=== PATIENT | male | born 1960 | race Caucasian/White ===

== ENCOUNTER 2020-09-27 21:34 | Inpatient (IN) | payer OTHER ==
[~2020-09-27] VITALS: Ht 162.6 cm; Wt 106.6 kg
[2020-09-27] MEDS ORDERED: AZITHROMYCIN 500MG/NS 250 ML 250 ML IV ONE (21:45)
[2020-09-27] MEDS ORDERED: DEXAMETHASONE SOD PHOS 10 MG/1 ML VIAL IV ONE (21:45)
[2020-09-27] MEDS ORDERED: CEFTRIAXONE SOD 1 GM/50 ML BAG IV ONE (21:45)
[2020-09-27] MEDS ORDERED: SODIUM CHLORIDE 0.9% IV STA (21:52)
[2020-09-27] MEDS ORDERED: CEFTRIAXONE SOD IV STA (21:52)
[2020-09-27 22:31] LABS: EOSINOPHILS % 0.3 % (0.0-6.0); HEMATOCRIT 40.1 % (38.2-49.6); HEMOGLOBIN 13.9 g/dL (14.0-18.0); LYMPHOCYTES # (AUTO) 0.5 (1.0-3.2); LYMPHOCYTES % 6.5 % (18.0-39.1); MEAN CORPUSCULAR HEMOGLOBIN 29.6 pg (28-32); MEAN CORPUSCULAR HGB CONC 34.7 g/dL (31-35); MEAN CORPUSCULAR VOLUME 85.3 fL (81-99); MONOCYTES # (AUTO) 0.6 (0.2-0.8); MONOCYTES % 7.7 % (4.4-11.3); NEUTROPHILS # (AUTO) 6.1 (2.1-6.9); NEUTROPHILS % 84.8 % (38.7-80.0); PLATELET COUNT 242 x10e3/uL (140-360); RED CELL DISTRIBUTION WIDTH 12.1 % (11.7-14.4)
[2020-09-27 22:43] LABS: ALANINE AMINOTRANSFERASE 36 IU/L (0-55); ALBUMIN 3.2 g/dL (3.5-5.0); ALBUMIN/GLOBULIN RATIO 0.8 (0.8-2.0); ANION GAP 16.5 mmol/L (8-16); BLOOD UREA NITROGEN 16 mg/dL (7-26); BUN/CREATININE RATIO 21 (6-25); CALCIUM 8.5 mg/dL (8.4-10.2); CARBON DIOXIDE 23 mmol/L (22-29); CHLORIDE 100 mmol/L (98-107); CREATINE KINASE 404 IU/L (30-200); CREATININE, SERUM 0.75 mg/dL (0.72-1.25); EST GLOMERULAR FILTRATION RATE > 60 ML/MIN (60-); GLUCOSE 140 mg/dL (74-118); POTASSIUM 3.5 mmol/L (3.5-5.1); SODIUM 136 mmol/L (136-145)
[2020-09-27 23:04] LABS: ALKALINE PHOSPHATASE 60 IU/L (40-150)
[2020-09-28] VITALS (9 sets, daily range): BP systolic 109–120; BP diastolic 58–92
[2020-09-28] MEDS ORDERED: SODIUM CHLORIDE FLUSH 10 ML SYR INJ PRN (03:00)
[2020-09-28] MEDS ORDERED: ONDANSETRON HCL INJ 2MG/ML 2ML 2 MG/ML VIAL IV PRN (03:00)
[2020-09-28] MEDS ORDERED: ACETAMINOPHEN 325 MG TAB PO PRN (03:00)
[2020-09-28] MEDS ORDERED: ZOLPIDEM TARTRATE 5 MG TAB PO PRN (08:00)
[2020-09-28 08:34] LABS: HEMATOCRIT 40.5 % (38.2-49.6); HEMOGLOBIN 14.2 g/dL (14.0-18.0); LYMPHOCYTES # (AUTO) 0.4 (1.0-3.2); LYMPHOCYTES % 9.4 % (18.0-39.1); MEAN CORPUSCULAR HGB CONC 35.1 g/dL (31-35); MEAN CORPUSCULAR VOLUME 85.6 fL (81-99); MONOCYTES # (AUTO) 0.1 (0.2-0.8); MONOCYTES % 3.5 % (4.4-11.3); NEUTROPHILS # (AUTO) 3.2 (2.1-6.9); NEUTROPHILS % 86.3 % (38.7-80.0); PLATELET COUNT 224 x10e3/uL (140-360); RED BLOOD COUNT 4.73 x10e6/uL (4.3-5.7); RED CELL DISTRIBUTION WIDTH 11.9 % (11.7-14.4)
[2020-09-28] MEDS ORDERED: SODIUM CHLORIDE 0.9% 250ML 250 ML ONE (08:34)
[2020-09-28 08:58] LABS: CREATINE KINASE MB 1.3 ng/mL (0-5.0)
[2020-09-28] MEDS: AZITHROMYCIN 500MG/NS 250 ML 250 ML IV SCH (09:06)
[2020-09-28] MEDS: ASCORBIC ACID 500 MG TAB PO SCH ×2 (09:06→16:21)
[2020-09-28] MEDS: GUAIFENESIN/CODEINE 10 ML CUP PO PRN ×3 (09:06→21:37)
[2020-09-28] MEDS: ENOXAPARIN SOD INJ 60 MG/0.6 ML SYR SC SCH ×2 (09:06→16:21)
[2020-09-28 09:12] LABS: ALANINE AMINOTRANSFERASE 35 IU/L (0-55); ALBUMIN 2.9 g/dL (3.5-5.0); ALBUMIN/GLOBULIN RATIO 0.7 (0.8-2.0); ALKALINE PHOSPHATASE 58 IU/L (40-150); BLOOD UREA NITROGEN 18 mg/dL (7-26); BUN/CREATININE RATIO 23 (6-25); CALCIUM 8.3 mg/dL (8.4-10.2); CARBON DIOXIDE 20 mmol/L (22-29); CHLORIDE 100 mmol/L (98-107); CREATININE, SERUM 0.78 mg/dL (0.72-1.25); EST GLOMERULAR FILTRATION RATE > 60 ML/MIN (60-); GLUCOSE 308 mg/dL (74-118); SODIUM 134 mmol/L (136-145)
[2020-09-28] MEDS: CEFTRIAXONE SOD 2 GM in SODIUM CHLORIDE 0.9% 100 ML IV SCH (11:25)
[2020-09-28] MEDS ORDERED: REMDESIVIR 200MG/NS 100ML 200 MG in SODIUM CHLORIDE 0.9% 100 ML 100 ML IV ONE (14:00)
[2020-09-28] MEDS ORDERED: ALBUTEROL SULFATE HFA 8GM INHALATION AEROSOL INH PRN (15:15)
[2020-09-28] MEDS: DEXAMETHASONE SOD PHOS 10 MG/1 ML VIAL IV SCH (16:21)
[2020-09-28 18:21] LABS: CREATINE KINASE MB 1.6 ng/mL (0-5.0)
[2020-09-28] MEDS: FENOFIBRATE 145 MG TAB PO SCH (21:37)
[2020-09-29] VITALS (8 sets, daily range): BP systolic 105–131; BP diastolic 58–75
[2020-09-29] MEDS: GUAIFENESIN/CODEINE 10 ML CUP PO PRN ×5 (01:54→23:45)
[2020-09-29 05:04] LABS: BASOPHILS % 0.1 % (0.0-1.0); HEMATOCRIT 38.9 % (38.2-49.6); HEMOGLOBIN 13.4 g/dL (14.0-18.0); LYMPHOCYTES # (AUTO) 0.5 (1.0-3.2); LYMPHOCYTES % 6.9 % (18.0-39.1); MEAN CORPUSCULAR HEMOGLOBIN 29.5 pg (28-32); MEAN CORPUSCULAR HGB CONC 34.4 g/dL (31-35); MEAN CORPUSCULAR VOLUME 85.7 fL (81-99); MONOCYTES # (AUTO) 0.6 (0.2-0.8); NEUTROPHILS # (AUTO) 5.9 (2.1-6.9); NEUTROPHILS % 84.1 % (38.7-80.0); PLATELET COUNT 274 x10e3/uL (140-360); RED BLOOD COUNT 4.54 x10e6/uL (4.3-5.7)
[2020-09-29 05:29] LABS: ALANINE AMINOTRANSFERASE 34 IU/L (0-55); ALBUMIN/GLOBULIN RATIO 0.8 (0.8-2.0); ALKALINE PHOSPHATASE 52 IU/L (40-150); ANION GAP 13.9 mmol/L (8-16); BLOOD UREA NITROGEN 19 mg/dL (7-26); BUN/CREATININE RATIO 25 (6-25); CALCIUM 8.2 mg/dL (8.4-10.2); CARBON DIOXIDE 26 mmol/L (22-29); CHLORIDE 99 mmol/L (98-107); CREATININE, SERUM 0.75 mg/dL (0.72-1.25); EST GLOMERULAR FILTRATION RATE > 60 ML/MIN (60-); GLUCOSE 176 mg/dL (74-118); POTASSIUM 3.9 mmol/L (3.5-5.1); SODIUM 135 mmol/L (136-145)
[2020-09-29 06:42] LABS: CREATINE KINASE MB 1.6 ng/mL (0-5.0)
[2020-09-29] MEDS: AMLODIPINE BESYLATE 5 MG TAB PO SCH (08:39)
[2020-09-29] MEDS: ENOXAPARIN SOD INJ 60 MG/0.6 ML SYR SC SCH ×2 (08:39→16:24)
[2020-09-29] MEDS: ASCORBIC ACID 500 MG TAB PO SCH ×2 (08:39→16:24)
[2020-09-29] MEDS: CEFTRIAXONE SOD 2 GM in SODIUM CHLORIDE 0.9% 100 ML IV SCH (08:40)
[2020-09-29] MEDS: AZITHROMYCIN 500MG/NS 250 ML 250 ML IV SCH (09:49)
[2020-09-29] MEDS ORDERED: IOPAMIDOL 370 MG/ML 200 ML INFUS..BTL INJ ONE (10:33)
[2020-09-29] MEDS ORDERED: SODIUM CHLORIDE 0.9% 50ML 50 ML ONE (10:33)
[2020-09-29] MEDS: REMDESIVIR 100MG/NS 100ML 100 MG IV SCH (13:23)
[2020-09-29] MEDS: DEXAMETHASONE SOD PHOS 10 MG/1 ML VIAL IV SCH (16:24)
[2020-09-29] MEDS: FENOFIBRATE 145 MG TAB PO SCH (20:24)
[2020-09-30] VITALS (8 sets, daily range): BP systolic 104–130; BP diastolic 56–78
[2020-09-30] MEDS: GUAIFENESIN/CODEINE 10 ML CUP PO PRN ×5 (03:41→21:30)
[2020-09-30] MEDS: ENOXAPARIN SOD INJ 60 MG/0.6 ML SYR SC SCH ×2 (08:30→16:59)
[2020-09-30] MEDS: ASCORBIC ACID 500 MG TAB PO SCH ×2 (08:30→16:58)
[2020-09-30] MEDS: AMLODIPINE BESYLATE 5 MG TAB PO SCH (08:30)
[2020-09-30] MEDS: CEFTRIAXONE SOD 2 GM in SODIUM CHLORIDE 0.9% 100 ML IV SCH (08:31)
[2020-09-30] MEDS: AZITHROMYCIN 500MG/NS 250 ML 250 ML IV SCH (09:39)
[2020-09-30 10:36] LABS: BASOPHILS % 0.1 % (0.0-1.0); HEMATOCRIT 39.3 % (38.2-49.6); HEMOGLOBIN 13.5 g/dL (14.0-18.0); LYMPHOCYTES # (AUTO) 0.5 (1.0-3.2); LYMPHOCYTES % 5.3 % (18.0-39.1); MEAN CORPUSCULAR HEMOGLOBIN 29.7 pg (28-32); MEAN CORPUSCULAR HGB CONC 34.4 g/dL (31-35); MEAN CORPUSCULAR VOLUME 86.6 fL (81-99); MONOCYTES # (AUTO) 0.6 (0.2-0.8); MONOCYTES % 6.9 % (4.4-11.3); NEUTROPHILS # (AUTO) 7.3 (2.1-6.9); NEUTROPHILS % 85.8 % (38.7-80.0); PLATELET COUNT 320 x10e3/uL (140-360); RED BLOOD COUNT 4.54 x10e6/uL (4.3-5.7)
[2020-09-30 10:54] LABS: ALANINE AMINOTRANSFERASE 30 IU/L (0-55); ALBUMIN 2.9 g/dL (3.5-5.0); ALBUMIN/GLOBULIN RATIO 0.9 (0.8-2.0); ALKALINE PHOSPHATASE 51 IU/L (40-150); ANION GAP 16.1 mmol/L (8-16); BLOOD UREA NITROGEN 20 mg/dL (7-26); BUN/CREATININE RATIO 25 (6-25); CALCIUM 8.2 mg/dL (8.4-10.2); CARBON DIOXIDE 25 mmol/L (22-29); CHLORIDE 99 mmol/L (98-107); CREATININE, SERUM 0.79 mg/dL (0.72-1.25); EST GLOMERULAR FILTRATION RATE > 60 ML/MIN (60-); GLUCOSE 214 mg/dL (74-118); POTASSIUM 4.1 mmol/L (3.5-5.1); SODIUM 136 mmol/L (136-145)
[2020-09-30] MEDS: REMDESIVIR 100MG/NS 100ML 100 MG IV SCH (14:32)
[2020-09-30] MEDS: DEXAMETHASONE SOD PHOS 10 MG/1 ML VIAL IV SCH (16:58)
[2020-09-30] MEDS: FENOFIBRATE 145 MG TAB PO SCH (21:30)
[2020-10-01] VITALS (8 sets, daily range): BP systolic 98–133; BP diastolic 62–84
[2020-10-01] MEDS: GUAIFENESIN/CODEINE 10 ML CUP PO PRN ×4 (01:56→23:30)
[2020-10-01 09:19] LABS: BASOPHILS % 0.4 % (0.0-1.0); HEMATOCRIT 45.2 % (38.2-49.6); HEMOGLOBIN 15.4 g/dL (14.0-18.0); LYMPHOCYTES # (AUTO) 0.4 (1.0-3.2); LYMPHOCYTES % 4.5 % (18.0-39.1); MEAN CORPUSCULAR HGB CONC 34.1 g/dL (31-35); MEAN CORPUSCULAR VOLUME 87.9 fL (81-99); MONOCYTES # (AUTO) 0.5 (0.2-0.8); MONOCYTES % 4.8 % (4.4-11.3); NEUTROPHILS # (AUTO) 8.4 (2.1-6.9); NEUTROPHILS % 87.9 % (38.7-80.0); PLATELET COUNT 329 x10e3/uL (140-360); RED BLOOD COUNT 5.14 x10e6/uL (4.3-5.7)
[2020-10-01 09:39] LABS: ALANINE AMINOTRANSFERASE 30 IU/L (0-55); ALBUMIN 3.1 g/dL (3.5-5.0); ALBUMIN/GLOBULIN RATIO 0.9 (0.8-2.0); ALKALINE PHOSPHATASE 55 IU/L (40-150); ANION GAP 14.4 mmol/L (8-16); BLOOD UREA NITROGEN 20 mg/dL (7-26); BUN/CREATININE RATIO 25 (6-25); CALCIUM 8.2 mg/dL (8.4-10.2); CARBON DIOXIDE 26 mmol/L (22-29); CHLORIDE 99 mmol/L (98-107); EST GLOMERULAR FILTRATION RATE > 60 ML/MIN (60-); GLUCOSE 229 mg/dL (74-118); POTASSIUM 4.4 mmol/L (3.5-5.1); SODIUM 135 mmol/L (136-145)
[2020-10-01] MEDS: AZITHROMYCIN 500MG/NS 250 ML 250 ML IV SCH (10:00)
[2020-10-01] MEDS: ENOXAPARIN SOD INJ 60 MG/0.6 ML SYR SC SCH ×2 (10:00→17:23)
[2020-10-01] MEDS: AMLODIPINE BESYLATE 5 MG TAB PO SCH (10:00)
[2020-10-01] MEDS: ASCORBIC ACID 500 MG TAB PO SCH ×2 (10:00→17:23)
[2020-10-01] MEDS: CEFTRIAXONE SOD 2 GM in SODIUM CHLORIDE 0.9% 100 ML IV SCH (12:54)
[2020-10-01] MEDS: REMDESIVIR 100MG/NS 100ML 100 MG IV SCH (17:23)
[2020-10-01] MEDS: DEXAMETHASONE SOD PHOS 10 MG/1 ML VIAL IV SCH (17:23)
[2020-10-01] MEDS: FENOFIBRATE 145 MG TAB PO SCH (20:53)
[2020-10-02 00:21] VITALS: BP 121/76
[2020-10-02 05:57] VITALS: BP 134/83
[2020-10-02 08:00] VITALS: BP 129/81
[2020-10-02 08:24] VITALS: BP 134/83
[2020-10-02 09:43] LABS: BASOPHILS % 0.1 % (0.0-1.0); HEMATOCRIT 44.8 % (38.2-49.6); HEMOGLOBIN 15.5 g/dL (14.0-18.0); LYMPHOCYTES # (AUTO) 0.5 (1.0-3.2); LYMPHOCYTES % 5.5 % (18.0-39.1); MEAN CORPUSCULAR HEMOGLOBIN 29.6 pg (28-32); MEAN CORPUSCULAR HGB CONC 34.6 g/dL (31-35); MEAN CORPUSCULAR VOLUME 85.7 fL (81-99); MONOCYTES # (AUTO) 0.6 (0.2-0.8); MONOCYTES % 6.6 % (4.4-11.3); NEUTROPHILS % 82.3 % (38.7-80.0); PLATELET COUNT 462 x10e3/uL (140-360); RED BLOOD COUNT 5.23 x10e6/uL (4.3-5.7); RED CELL DISTRIBUTION WIDTH 11.9 % (11.7-14.4)
[2020-10-02 10:06] LABS: ALANINE AMINOTRANSFERASE 35 IU/L (0-55); ALBUMIN 3.2 g/dL (3.5-5.0); ALKALINE PHOSPHATASE 52 IU/L (40-150); ANION GAP 11.2 mmol/L (8-16); BLOOD UREA NITROGEN 16 mg/dL (7-26); BUN/CREATININE RATIO 20 (6-25); CALCIUM 8.6 mg/dL (8.4-10.2); CARBON DIOXIDE 29 mmol/L (22-29); CHLORIDE 100 mmol/L (98-107); CREATININE, SERUM 0.81 mg/dL (0.72-1.25); EST GLOMERULAR FILTRATION RATE > 60 ML/MIN (60-); GLUCOSE 186 mg/dL (74-118); POTASSIUM 4.2 mmol/L (3.5-5.1); SODIUM 136 mmol/L (136-145)
[2020-10-02] MEDS: AMLODIPINE BESYLATE 5 MG TAB PO SCH (10:36)
[2020-10-02] MEDS: ENOXAPARIN SOD INJ 60 MG/0.6 ML SYR SC SCH ×2 (10:36→15:54)
[2020-10-02] MEDS: GUAIFENESIN/CODEINE 10 ML CUP PO PRN (10:36)
[2020-10-02] MEDS: ASCORBIC ACID 500 MG TAB PO SCH ×2 (10:36→15:54)
[2020-10-02] MEDS: CEFTRIAXONE SOD 2 GM in SODIUM CHLORIDE 0.9% 100 ML IV SCH (10:36)
[2020-10-02 12:00] VITALS: BP 127/74
[2020-10-02] MEDS: AZITHROMYCIN 500MG/NS 250 ML 250 ML IV SCH (12:45)
[2020-10-02] MEDS: REMDESIVIR 100MG/NS 100ML 100 MG IV SCH (15:54)
[2020-10-02] MEDS: DEXAMETHASONE SOD PHOS 10 MG/1 ML VIAL IV SCH (15:54)
[2020-10-02 16:00] VITALS: BP 119/72
[2020-10-02] MEDS ORDERED: DECADRON4 M1 PO (17:01)
== END 2020-10-02 17:45 | disposition home or self-care (01) | DRG 177 ==
LOC: ER 21:45 → ERHOLD 09-28 02:56 → IMCU 09-28 03:51
PROVIDERS: ADMIT Internal Medicine; ATTEND Internal Medicine
PROC: XW033E5 Introduction of Remdesivir Anti-infective into Peripheral Vein, Percutaneous Approach, New Technology Group 5 (ICD-10-PCS; principal; 2020-09-28)
PROC: 8E0ZXY6 Isolation (ICD-10-PCS; 2020-09-28)
DX: U07.1 COVID-19 (principal); J12.9 Viral pneumonia, unspecified; J96.01 Acute respiratory failure with hypoxia; Z68.41 Body mass index [BMI] 40.0-44.9, adult; I10 Essential (primary) hypertension; R73.9 Hyperglycemia, unspecified; E66.01 Morbid (severe) obesity due to excess calories; Z96.643 Presence of artificial hip joint, bilateral; M16.0 Bilateral primary osteoarthritis of hip; D64.9 Anemia, unspecified; E78.00 Pure hypercholesterolemia, unspecified
CPT/HCPCS: 36415; 71045; 71260; 80053; 82550; 82553; 82948; 83036; 84484; 85025; 87040; 93005; 96360; 99251; 99284; J0456; J0696; J1100; J1650; J7050; Q9967; U0002

== ENCOUNTER 2024-06-27 18:30 | Emergency (ER) | payer OTHER ==
[~2024-06-27] VITALS: Ht 162.6 cm; Wt 106.6 kg
[~2024-06-27 18:30] MED LIST: DECADRON4 M1 PO
[2024-06-27] MEDS: ACETAMINOPHEN 325 MG TAB PO ONE (19:10)
[2024-06-27 19:54] LABS: STREPTOCOCCUS GRP A ANTIGEN POSITIVE (NEGATIVE)
[2024-06-27 19:55] LABS: CORONAVIRUS COVID-19 AG NEGATIVE (NEGATIVE); INFLUENZA A AG POSITIVE (NEGATIVE); INFLUENZA B AG NEGATIVE (NEGATIVE)
[2024-06-27] MEDS ORDERED: ONDANSETRON ODT4 MG SL (20:13)
[2024-06-27] MEDS ORDERED: AMOX TR-K CLV1 EAC2 PO (20:13)
[2024-06-27 20:20] VITALS: PULSE 66; RESP 18; TEMP 98.5; O2SAT 96
== END 2024-06-27 20:29 | disposition home or self-care (01) ==
LOC: ER 19:01
DX: R50.9 Fever, unspecified (principal); J10.1 Influenza due to other identified influenza virus with other respiratory manifestations; I10 Essential (primary) hypertension; E78.5 Hyperlipidemia, unspecified; Z11.52 Encounter for screening for COVID-19; Z96.653 Presence of artificial knee joint, bilateral
CPT/HCPCS: 71045; 83518; 99283